=== PATIENT | female | born 1960 | race Caucasian/White ===

== ENCOUNTER → 2017-06-02 | Day surgery (SDC) | payer BC ==
[2017-05-29 10:56] LABS: BASO # 0.1 10*3/uL (0.0-0.1); BASO % 0.8 % (0.0-1.0); EOS # 0.3 10*3/uL (0.0-0.4); EOS % 4.4 % (1.0-4.0); HEMATOCRIT 42.8 % (37.0-47.0); LYMPH # 1.5 10*3/uL (1.3-4.4); LYMPH % 26.1 % (27.0-41.0); MEAN CELL VOLUME 92.8 fl (81.0-99.0); MEAN CORPUSCULAR HGB 30.4 pg (27.0-31.0); MEAN CORPUSCULAR HGB CONC 32.7 g/dl (33.0-37.0); MEAN PLATELET VOLUME 10.4 fl (9.6-12.3); MONO # 0.5 10*3/uL (0.1-1.0); MONO % 7.8 % (3.0-9.0); NEUT # 3.6 10*3/uL (2.3-7.9); NEUT % 60.6 % (47.0-73.0); PLATELET COUNT AUTOMATED 243 10*3/uL (130-400); RED BLOOD COUNT 4.61 10*6/uL (4.10-5.10); RED CELL DISTRI WIDTH 13.8 % (0-14.5); WHITE BLOOD COUNT 5.9 10*3/uL (4.8-10.8)
[~2017-06-02] VITALS: Ht 157.4 cm; Wt 74.8 kg
[~2017-06-02] MED LIST: AMOXICILLIN500 MG PO; VICO10300 PO
--- NOTE | ~2017-06-02 | O ---
[place], [place] OPERATIVE NOTE NAME: MERYL MICHELLE [facility] #: [id number] UNIT #: [id number] ROOM: DOCTOR: GREG LARES MD BIRTHDATE: [birth year] DOS: 06/02/2017 PREOPERATIVE DIAGNOSIS: Rather profuse postmenopausal bleeding. POSTOPERATIVE DIAGNOSIS: Rather profuse postmenopausal bleeding. OPERATION: D and C and Hysteroscopy. SURGEON: Greg Lares MD. ANESTHESIA: MAC. ESTIMATED BLOOD LOSS: 30 to 40 mL but again primarily because of the heavy bleeding she is already experiencing. COMPLICATIONS: There were no complications with the procedure itself. CONDITION: The patient's condition to recovery stable. OPERATIVE SUMMARY: The patient was taken to the operating room in supine position, MAC anesthesia, lithotomy position, prepped and draped in routine manner. Bladder was straight catheterized of about 115 mL of clear urine. There was a very prominent first degree cystocele, as the patient had stated something in regards stress incontinence and wanted to know about the status of her bladder. There was no significant rectocele. The cervix was grossly within normal limits. The recent Pap was negative. Uterus was retroverted and retroflexed, sounded to 9 cm, required only minimal dilatation. Hysteroscopic exam was difficult because of the amount of bleeding that the patient was experiencing. We removed the hysteroscope therefore and proceeded with D and C where the primary thickening and tissue appeared to be in the anterior uterus and the body of the uterus. We thoroughly curetted and used stone forceps and removed a rather profuse amount of tissue. This was certainly consistent with hyperplastic process, if not something worse in a postmenopausal patient by 10 years. Once this was completed, we repeated our hysteroscopy and again revealed no significant intrauterine encroachment by polyps or fibroids and the bleeding had diminished somewhat as we finished the case. The area of most likely culprit for this is the body of the uterus, which I was able to palpate more with a curette itself and I was actually visually. Once this was completed, the patient had all instrumentation removed and noting good hemostasis, she was cleaned off, taken out of lithotomy position, awakened and transferred to recovery with stable vital signs, stable sponge and instrument count and reasonable hemostasis, not from the surgery, but from the culprit for the bleeding in first place. This patient may require an emergency hysterectomy if this bleeding does not straighten out and responds to some Aygestin therapy that I am going to provide and hopefully we it will all straighten out so we have time to receive the pathology report back and make some decisions about her best therapeutic options. The patient as I said did get to recovery in stable condition with stable vital signs. [place], [place] OPERATIVE NOTE NAME: MERYL MICHELLE UNIT #: [id number] ROOM: DOCTOR: GREG LARES MD BIRTHDATE: [birth year] GREG LARES MD CM:OPRECORD:OPERATIVE NOTE [id number] GREG LARES MD 06/02/17 1416 interface
--- NOTE | ~2017-06-02 | WRIGHTHP ---
[place], [place] PATIENT HISTORY AND PHYSICAL EXAM NAME: MERYL MICHELLE [facility] #: [id number] UNIT #: [id number] ROOM: DOCTOR: AMBREEN ERAZO MD BIRTHDATE: [birth year] DOS: 06/02/2017 HISTORY OF PRESENT ILLNESS: This is a very pleasant 57-year-old white female who is 10 years status post menopause, who presented on 05/28/2017 with a history of 6 weeks of bright red bleeding. She stated that she started to have some cramps, some hot flashes again, etc. and stated that her last period was over 10 years ago. The patient on exam today had moderately heavy bleeding. I did perform a Pap as it was due. I sounded the uterus to 9 cm and made 4 passes with a curette and obtained mainly old blood, but the patient tolerated this very well. I was afraid that I had not gotten an adequate sample due to the degree of the bleeding. I discussed with the patient a quick outpatient D and C and hysteroscopy because we need to get to the bottom of this. I think that the volume of bleeding particularly at this age and particularly 10 years postmenopause. Risks and benefits, indications, potential complications and alternatives were reviewed, understanding was stated and she signed consent. PAST MEDICAL HISTORY: Reveals 3 pregnancies and 3 vaginal deliveries. She has never had bone density, never had colonoscopy. Last mammogram was negative in December 2015. Her last Pap smear had been in 2001. She has also had an ovarian cyst removed from one side, she is not certain which and has had tonsillectomy. SOCIAL HISTORY: She states that she does smoke about a pack a day and drinks alcohol socially. ALLERGIES: She has no known allergies. MEDICATIONS: She is not taking any significant medications. REVIEW OF SYSTEMS: Stable. FAMILY HISTORY: Reveals her father to be from CVA and heart disease. Her mother has hypertension and heart disease and she has a sibling from having had heart disease. She also has one child who has a history of endometriosis. PHYSICAL EXAMINATION: GENERAL: Reveals a very pleasant white female, in no significant distress. VITAL SIGNS: She is 5 feet 1 inch, 148 pounds, BMI is 28, blood pressure 112/78 and oxygen sat is 99%. She has no history of sleep apnea. HEENT: Grossly intact. NECK: Grossly intact. LUNGS: Grossly intact. CARDIAC: Grossly intact. BREASTS: Grossly intact. ABDOMEN: Grossly intact. EXTREMITIES: Grossly intact. NEUROLOGIC: Grossly intact. GENITOURINARY: External genitalia normal. Vagina was full of dark brown blood. Cervix and uterus have been described above. The adnexa were negative to palpation. [place], [place] PATIENT HISTORY AND PHYSICAL EXAM [facility]: [id number] UNIT #: [id number] ROOM: DOCTOR: AMBREEN ERAZO MD BIRTHDATE: [birth year] RECTAL: Deferred. ASSESSMENT: The patient with fairly significant postmenopausal bleeding, questionable etiology. PLAN: The patient will undergo hysteroscopy on 06/02/2017. AMBREEN ERAZO MD CM:HISPHYS:PATIENT HISTORY AND PHYSICAL EXAMINATION [id number] AMBREEN ERAZO MD 05/30/17 0803 interface
[2017-06-02 11:00] VITALS: BP 132/80
[2017-06-02 13:13] VITALS: BP 108/65
[2017-06-02 13:28] VITALS: BP 115/77
[2017-06-02 13:43] VITALS: BP 113/65
== END | disposition home or self-care (01) ==
LOC: SDC 05-29 09:30
PROVIDERS: Obstetrics & Gynecology
DX: C54.1 Malignant neoplasm of endometrium (principal); N95.0 Postmenopausal bleeding; F41.9 Anxiety disorder, unspecified; Z87.01 Personal history of pneumonia (recurrent); Z82.49 Family history of ischemic heart disease and other diseases of the circulatory system; F17.210 Nicotine dependence, cigarettes, uncomplicated

== ENCOUNTER → 2017-06-23 | Day surgery (SDC) | payer BC ==
[2017-06-19 12:06] LABS: BASO % 0.8 % (0.0-1.0); EOS # 0.2 10*3/uL (0.0-0.4); EOS % 4.6 % (1.0-4.0); HEMATOCRIT 37.6 % (37.0-47.0); HEMOGLOBIN 12.5 g/dl (12.0-16.0); LYMPH # 1.5 10*3/uL (1.3-4.4); LYMPH % 29.4 % (27.0-41.0); MEAN CORPUSCULAR HGB 29.9 pg (27.0-31.0); MEAN CORPUSCULAR HGB CONC 33.2 g/dl (33.0-37.0); MEAN PLATELET VOLUME 9.6 fl (9.6-12.3); MONO # 0.4 10*3/uL (0.1-1.0); MONO % 6.9 % (3.0-9.0); NEUT % 57.9 % (47.0-73.0); PLATELET COUNT AUTOMATED 329 10*3/uL (130-400); RED BLOOD COUNT 4.18 10*6/uL (4.10-5.10); RED CELL DISTRI WIDTH 13.4 % (0-14.5); WHITE BLOOD COUNT 5.2 10*3/uL (4.8-10.8)
[~2017-06-23] VITALS: Ht 154.9 cm; Wt 77.6 kg
[2017-06-23] VITALS (10 sets, daily range): BP systolic 103–128; BP diastolic 56–70
[~2017-06-23] MED LIST changes: +Percocet 325 MG1 TAB PO
--- NOTE | ~2017-06-23 | WRIGHTHP ---
[place], [place] PATIENT HISTORY AND PHYSICAL EXAM NAME: MERYL MICHELLE [facility] #: [id number] UNIT #: [id number] ROOM: DOCTOR: AMBREEN ERAZO MD BIRTHDATE: [birth year] DOS: 06/23/2017 The patient had had an H and P dictated for her surgery of 06/02/2017 and is now returning for an LAVH, BSO. I will add bits and pieces to the H and P dictated prior to the operation of 06/02/2017 as it has been less than 30 days. HISTORY OF PRESENT ILLNESS: This patient is a 57-year-old white female who presented with rather profuse postmenopausal bleeding to the office several weeks ago. 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 This was confirmed by a second opinion per Dr. Langley request. In the meantime, her Pap smear also came back ROSALVA. At that point, I was unsure whether she had cervical cancer spreading to the uterus or whether she had uterine cancer spreading to the cervix or whether these were 2 completely separate entities. To that end, on 06/10/2017, the patient was brought to the office for colposcopy and to discuss the pathology report from the surgery itself. The colposcopy and the directed biopsies revealed essentially a negative ECC and JENNIFER 1-2 of the ectocervix. At that point, it appeared that these were unrelated issues. I had suggested to the patient a referral to a larger academic center for her definitive hysterectomy due to the malignancy diagnosis, but she was adamant that she did not want to do this. I advised her that the risk with a very low grade well differentiated adenocarcinoma was quite small for the pelvic thor mets, but it was still possible and she still stated that she would not go any place else and that she would prefer an LAVH and BSO. To that end, the risks and benefits, indication, potential complications and alternatives of the LAVH and BSO were given, understanding was stated and she did sign the consent and is scheduled for this procedure on 06/23/2017. Incidentally, I am dictating this on 06/18/2017. Her past history, her medical history, her OB history, surgical history, family history and social history are all unchanged. Her medication list is the same as it had been for her surgery on 06/02/2017. Her physical exam is also stable and unchanged from the physical exam preceding the D and C and hysteroscopy. CONCLUSION AND SUMMARY: 1. The patient has postmenopausal bleeding. 2. A diagnosis of low-grade endometrial adenocarcinoma. 3. An ROSALVA Pap smear with essentially negative ECC and JENNIFER 1-2 of the ectocervix. PLAN: At this time, based on the information provided above in the HPI will be to proceed with an CLAUDIO HULL on 06/23/2017. [place], [place] PATIENT HISTORY AND PHYSICAL EXAM NAME: MERYL MICHELLE UNIT #: [id number] ROOM: DOCTOR: AMBREEN ERAZO MD BIRTHDATE: [birth year] AMBREEN ERAZO MD CM:HISPHYS:PATIENT HISTORY AND PHYSICAL EXAMINATION [id number] AMBREEN ERAZO MD 06/25/17 0650 interface
--- NOTE | ~2017-06-23 | O ---
[place], [place] OPERATIVE NOTE [id number] UN[facility] #: [id number] ROOM: [id number] DOCTOR: AMBREEN ERAZO MD BIRTHDATE: [birth year] DOS: 06/23/2017 PREOPERATIVE DIAGNOSES: Postmenopausal bleeding, well differentiated. adenocarcinoma of the endometrium, refusal to transfer to [facility] onc[facility] for her definitive surgery, history of JENNIFER 1-2 of the ectocervix, also status post right salpingo-oophorectomy. POSTOPERATIVE DIAGNOSES: Postmenopausal bleeding, well differentiated. adenocarcinoma of the endometrium, refusal to transfer to [facility] oncologist for her definitive surgery, history of JENNIFER 1-2 of the ectocervix, also status post right salpingo-oophorectomy. OPERATIONS: LAVH-LSO. SURGEON: Dr. Ambreen Erazo and Dr. May. ANESTHESIA: General. ESTIMATED BLOOD LOSS: Less than 100 mL. REPLACEMENTS: IV fluids. We also had used for IV fluid replacement Ancef, Ofirmev and Toradol. COMPLICATIONS: There were no complications. CONDITION: The patient's condition to recovery was stable. OPERATIVE SUMMARY: The patient was taken to the operating room in supine position, general anesthesia, endotracheal intubation, lithotomy position, prepped and draped in routine manner. Hennessy catheter was placed. Cervix was grasped with a tenaculum and a cervical manipulator placed. Once that was done, we turned our attention abdominally where an infraumbilical, suprapubic and right lower quadrant incisions were made. Through the infraumbilical incision, we placed a 5 mm trocar sleeve and laparoscope under direct visualization and then insufflated with CO2, followed by placement of two 5 mm trocars and sleeves through the suprapubic and right lower quadrant incisions. We placed a probe and systematic examination of the pelvis revealed the uterus to be 6-7 weeks size with a number of fibroids of varying sizes noted. The right adnexa was absent. The left adnexa was within normal limits. The appendix, liver and gallbladder were all visualized and grossly within normal limits, as was the upper abdomen. Once the survey was completed, the LigaSure device was placed and the left salpingo-oophorectomy was performed with several pedicles created with a LigaSure device. We then took a number of pedicles down bilaterally along the uterus, down to near the uterine vasculature. I decided not due to the nature of the vessels and the tortuosity of the vessels not to try to proceed with a bladder flap creation. Therefore, I removed my instruments at that point, repositioned the patient, redressed the cervix, injected the cervix in a circumferential manner with 1% lidocaine with epinephrine, followed by making a circumferential incision. Bladder was displaced anteriorly and the rectum posteriorly. Posterior cul-de-sac was rather thick to ____ therefore we [place], [place] OPERATIVE NOTE NAME: MERYL MICHELLE UNIT #: [id number] ROOM: [id number] DOCTOR: AMBREEN ERAZO MD BIRTHDATE: [birth year] took a number of pedicles using either curved Judith clamps and suturing with 0 Vicryl in transfixing manner or the LigaSure device. Once we had taken several pedicles bilaterally, we entered the anterior cul-de-sac without issue. We finally did enter the posterior cul-de-sac and took another pedicle using Judith clamps and 0 Vicryl in transfixing manner for the uterosacral/cardinal ligament pedicles. We then used our LigaSure to create several additional pedicles bilaterally. We inverted the uterus and then removed the uterus, cervix and left tube and ovary. We examined our pedicle lines carefully and noted them to be hemostatic. We observed the stable sponge and instrument count. We then reperitonealized with 2-0 Vicryl in a pursestring manner. Once that was completed, we closed the vaginal cuff with a series of interrupted 0 Vicryl [id number] sutures. Once that was completed, we then rinsed the vagina with Betadine solution as there had been some endometrial tissue exited through the cervical os with the case and because of the known malignancy ____ literature per se supporting this approach, it felt like the prudent thing to do and we therefore did this, then rinsed thoroughly again and checked for hemostasis, noting good hemostasis. We then reinsufflated the abdomen and replaced our laparoscope and a probe and examined the vaginal cuff carefully, noting it to be intact, noting good hemostasis and observing the ureters and noting them to be peristalsing normally and nondistended. Once that survey was completed, we removed the 2 lower trocar sleeves and instrumentation and noting no excessive anterior abdominal bleeding, CO2 was allowed to escape, followed by removal of the infraumbilical trocar, sleeve and laparoscope. We then as I said after having allowed CO2 to escape, we then closed our 3 incisions with subcuticular 3-0 Monocryl sutures. Steri-Strips and dressings placed. The patient was then further cleaned off, taken out of lithotomy position, awakened, extubated and transferred to recovery in satisfactory condition with stable vital signs, good hemostasis, stable sponge and instrument count and clear and adequate urine output. AMBREEN ERAZO MD CM:OPRECORD:OPERATIVE NOTE [id number] AMBREEN ERAZO MD 06/23/17 1252 interface
== END | disposition home or self-care (01) ==
LOC: SDC 06-19 11:00 → 5E 10:54 → SDC 11:00
PROVIDERS: Obstetrics & Gynecology
DX: C54.1 Malignant neoplasm of endometrium (principal); N95.0 Postmenopausal bleeding; D25.9 Leiomyoma of uterus, unspecified; F17.210 Nicotine dependence, cigarettes, uncomplicated; F41.9 Anxiety disorder, unspecified; Z98.890 Other specified postprocedural states

== ENCOUNTER → 2023-10-07 | Outpatient (CLI) | payer BC | END | disposition home or self-care (01) | LOC: MAMMO 10-02 10:30 | PROVIDERS: ATTEND Nurse Practitioner | DX: Z12.31 Encounter for screening mammogram for malignant neoplasm of breast (principal); N64.89 Other specified disorders of breast ==

== ENCOUNTER → 2024-11-08 | Outpatient (CLI) | payer BC | END | disposition home or self-care (01) | LOC: RAD 03:31 → US 03:31 | PROVIDERS: ATTEND Physician Assistant | DX: M71.22 Synovial cyst of popliteal space [Baker], left knee (principal); M25.562 Pain in left knee ==

== ENCOUNTER → 2024-12-20 | Outpatient (CLI) | payer BC | END | disposition home or self-care (01) | LOC: MAMMO 14:19 | PROVIDERS: ATTEND Nurse Practitioner | DX: Z12.31 Encounter for screening mammogram for malignant neoplasm of breast (principal); R92.333 Mammographic heterogeneous density, bilateral breasts ==